=== PATIENT | male | born 1990 | race Asian ===

== ENCOUNTER 2023-10-17 16:52 | Outpatient (CLI) | payer BC ==
[2023-10-17 17:15] LABS: Hematocrit 45.7 % (38.8-50.0); Hemoglobin 16.3 g/dL (13.5-17.5); Mean Corpuscular HGB CONC 35.7 g/dL (32.0-36.0); Mean Corpuscular Hemoglobin 31.7 pg (27.0-33.0); Mean Corpuscular Volume 88.7 fL (81.2-95.1); Mean Platelet Volume 9.2 fL (7.4-10.4); Platelet Count 258 10x3/uL (150-450); Red Blood Cell (RBC) Count 5.15 10x6/uL (4.32-5.72); White Blood Cell (WBC) Count 11.9 10x3/uL (3.5-10.5)
[2023-10-17 17:27] LABS: PTT 29.4 sec (22.0-33.0); Prothrombin Time 10.8 sec (9.5-12.1)
[2023-10-17 17:43] LABS: Anion Gap 13 mmol/L (10-20); BUN (Urea Nitrogen) 16 mg/dL (8.9-20.6); Calc. Creatinine Clearance 0 mL/min (70-130); Calcium 9.5 mg/dL (7.8-10.44); Carbon Dioxide 24 mmol/L (22-29); Chloride 107 mmol/L (98-107); Estimated GFR 85; Glucose 99 mg/dL (70-105); Potassium 4.2 mmol/L (3.5-5.1); Sodium 140 mmol/L (136-145)
== END 2023-10-17 16:53 | disposition home or self-care (01) ==
LOC: LABBT 16:52
PROVIDERS: ATTEND Urology
DX: Z01.812 Encounter for preprocedural laboratory examination (principal); N20.1 Calculus of ureter
CPT/HCPCS: 80048; 85027; 85610; 85730

== ENCOUNTER 2023-10-18 10:16 | Day surgery (SDC) | payer BC ==
[2023-10-17 16:03] VITALS: BMI 25.8
[2023-10-18] MEDS ORDERED: Lidocaine 1% PF 5 ML VIAL ONE (13:07)
[2023-10-18] MEDS ORDERED: Rocuronium Bromide 10 MG/ML (10ML VIAL) ONE (13:07)
[2023-10-18] MEDS ORDERED: PROPOFOL 20 ML ONE (13:07)
[2023-10-18] MEDS ORDERED: fentaNYL PF 100 MCG/2 ML SYRINGE ONE (13:07)
[2023-10-18] MEDS ORDERED: LevoFLOXacin D5W 500 mg (100 mL) BAG ONE (14:03)
[2023-10-18] MEDS ORDERED: Iopamidol 30 ML ONE (14:04)
[2023-10-18] MEDS ORDERED: Ondansetron PF 4 MG/2 ML Vial ONE (14:12)
[2023-10-18] MEDS ORDERED: SUGAMMADEX SODIUM 200 MG/2 ML VIAL ONE ×2 (14:13→14:56)
[2023-10-18] MEDS ORDERED: Ketorolac Tromethamine 30 MG (1 mL) VIAL ONE (15:22)
[2023-10-18] MEDS ORDERED: fentaNYL 50 mcg/mL 1 mL Vial ONE (15:23)
[2023-10-18] MEDS ORDERED: Phenazopyridine HCl 100 MG TAB ONE (15:23)
[2023-10-18] MEDS ORDERED: Oxybutynin 5 MG TAB ONE (15:24)
== END 2023-10-18 16:30 | disposition home or self-care (01) ==
LOC: SDC 10:16
PROVIDERS: ATTEND Urology
PROC: 0T768DZ Dilation of Right Ureter with Intraluminal Device, Via Natural or Artificial Opening Endoscopic (ICD-10-PCS; principal; 2023-10-18)
PROC: 0TC68ZZ Extirpation of Matter from Right Ureter, Via Natural or Artificial Opening Endoscopic (ICD-10-PCS; principal; 2023-10-18)
DX: N20.2 Calculus of kidney with calculus of ureter (principal); F41.9 Anxiety disorder, unspecified; F17.200 Nicotine dependence, unspecified, uncomplicated; Z79.899 Other long term (current) drug therapy
CPT/HCPCS: 74176; 74420; C2617; J1885; J1956; J2405; J2704; J3010; Q9967

== ENCOUNTER 2023-10-23 16:21 | Outpatient (CLI) | payer BC ==
[2023-10-23 16:52] LABS: Bilirubin Neg (Negative); Blood, Urine 250 (Negative); Clarity Slightly Cloudy (Clear); Glucose, Urine (Dipstick) Normal (Negative); Ketone, Urine Negative (Negative); Leukocyte 500 (Negative); Nitrite Negative (Negative); Protein, Urine (Dipstick) 100 mg/dl (Neg-Trace); Urobilinogen Normal mg/dL (Less than 2)
[2023-10-23 17:03] LABS: Hemoglobin 16.4 g/dL (13.5-17.5); Mean Corpuscular HGB CONC 34.9 g/dL (32.0-36.0); Mean Corpuscular Hemoglobin 30.8 pg (27.0-33.0); Mean Corpuscular Volume 88.2 fL (81.2-95.1); Mean Platelet Volume 8.9 fL (7.4-10.4); Platelet Count 292 10x3/uL (150-450); RBC Distribution Width 11.3 % (11.5-14.5); Red Blood Cell (RBC) Count 5.33 10x6/uL (4.32-5.72); White Blood Cell (WBC) Count 7.4 10x3/uL (3.5-10.5)
[2023-10-23 17:15] LABS: Anion Gap 13 mmol/L (10-20); BUN (Urea Nitrogen) 15 mg/dL (8.9-20.6); Calc. Creatinine Clearance 0 mL/min (70-130); Calcium 9.8 mg/dL (7.8-10.44); Carbon Dioxide 26 mmol/L (22-29); Chloride 106 mmol/L (98-107); Estimated GFR 105; Glucose 100 mg/dL (70-105); Potassium 3.8 mmol/L (3.5-5.1); Sodium 141 mmol/L (136-145)
[2023-10-23 17:24] LABS: Bacteria/HPF 2+ HPF (None Seen); RBC/HPF Greater than 50 HPF (0-3); Squamous Epithelial 0-3 HPF (0-3)
[2023-10-23 17:51] LABS: PTT 29.6 sec (22.0-33.0); Prothrombin Time 10.4 sec (9.5-12.1)
== END 2023-10-23 16:22 | disposition home or self-care (01) ==
LOC: LABBT 16:21
PROVIDERS: ATTEND Urology
DX: Z01.812 Encounter for preprocedural laboratory examination (principal); N20.2 Calculus of kidney with calculus of ureter
CPT/HCPCS: 80048; 81001; 85027; 85610; 85730; 87086

== ENCOUNTER 2023-10-30 08:29 | Day surgery (SDC) | payer BC ==
[2023-10-23 16:36] VITALS: BMI 26.6
[2023-10-30] MEDS ORDERED: LevoFLOXacin D5W 500 mg (100 mL) BAG ONE (10:25)
[2023-10-30] MEDS ORDERED: Iopamidol 30 ML ONE (11:39)
[2023-10-30] MEDS ORDERED: Lidocaine 2% PF 5 ML VIAL ONE (11:45)
[2023-10-30] MEDS ORDERED: Rocuronium Bromide 10 MG/ML (10ML VIAL) ONE (11:45)
[2023-10-30] MEDS ORDERED: fentaNYL PF 100 MCG/2 ML SYRINGE ONE ×2 (11:45→12:19)
[2023-10-30] MEDS ORDERED: PROPOFOL 20 ML ONE (11:46)
[2023-10-30] MEDS ORDERED: Midazolam HCl 2 mg/2 ml Vial ONE (11:46)
[2023-10-30] MEDS ORDERED: SUGAMMADEX SODIUM 200 MG/2 ML VIAL ONE (11:50)
[2023-10-30] MEDS ORDERED: Ondansetron PF 4 MG/2 ML Vial ONE (12:28)
[2023-10-30] MEDS ORDERED: Dexamethasone 20 MG/5 ML VIAL ONE (12:28)
[2023-10-30] MEDS ORDERED: Phenazopyridine HCl 100 MG TAB ONE (14:02)
[2023-10-30] MEDS ORDERED: Oxybutynin 5 MG TAB ONE (14:02)
[2023-10-30] MEDS ORDERED: Tamsulosin HCl 0.4 MG CAP ONE (14:03)
== END 2023-10-30 15:52 | disposition home or self-care (01) ==
LOC: SDC 08:29
PROVIDERS: ATTEND Urology
PROC: 0T768DZ Dilation of Right Ureter with Intraluminal Device, Via Natural or Artificial Opening Endoscopic (ICD-10-PCS; principal; 2023-10-30)
PROC: 0TC68ZZ Extirpation of Matter from Right Ureter, Via Natural or Artificial Opening Endoscopic (ICD-10-PCS; principal; 2023-10-30)
PROC: 0TC38ZZ Extirpation of Matter from Right Kidney Pelvis, Via Natural or Artificial Opening Endoscopic (ICD-10-PCS; principal; 2023-10-30)
DX: N20.2 Calculus of kidney with calculus of ureter (principal); F17.200 Nicotine dependence, unspecified, uncomplicated
CPT/HCPCS: 74018; 74420; 82365; 88300; C1747; C1769; C2617; J1100; J1956; J2001; J2250; J2405; J2704; Q9967